=== PATIENT | female | born 1970 | race African-American/Black ===

== ENCOUNTER 2021-07-11 11:55 | Inpatient (IN) | payer OTHER, SELFPAY ==
[2021-07-11] MEDS ORDERED: Ketorolac Tromethamine 30 MG/ML VIAL ONE ×2 (14:03→16:54)
[2021-07-11] MEDS ORDERED: Scopolamine 1.5 mg/72 hour Patch ONE (14:03)
[2021-07-11] MEDS ORDERED: EPINEPHrine 1 MG/ML AMP ONE (16:24)
[2021-07-11] MEDS ORDERED: Bupivacaine PF 0.5% 30 ML VIAL ONE (16:24)
[2021-07-11] MEDS ORDERED: fentaNYL Citrate/PF 100 MCG/2 ML SYRINGE ONE ×2 (16:33→18:06)
[2021-07-11] MEDS ORDERED: SUGAMMADEX SODIUM 200 MG/2 ML VIAL ONE (16:33)
[2021-07-11] MEDS ORDERED: Famotidine/PF 20 mg/2ml Vial ONE (16:33)
[2021-07-11] MEDS ORDERED: cefOXitin 2 GM VIAL ONE (16:45)
[2021-07-11] MEDS ORDERED: Rocuronium Bromide 10 MG/ML (10ML VIAL) ONE (16:54)
[2021-07-11] MEDS ORDERED: Ondansetron PF 4 MG/2 ML Vial ONE (16:54)
[2021-07-11] MEDS ORDERED: Albuterol Sulfate HFA (OR ONLY) ONE (16:54)
[2021-07-11] MEDS ORDERED: Succinylcholine 200 MG/10 ml SYRINGE FS ONE (16:54)
[2021-07-11] MEDS ORDERED: PROPOFOL 200 MG/20 ML VIAL ONE (16:54)
[2021-07-11] MEDS ORDERED: Lidocaine 1% PF 5 ML VIAL ONE (16:54)
[2021-07-11] MEDS ORDERED: Dexamethasone 20 MG/5 ML VIAL ONE (16:54)
[2021-07-11] MEDS ORDERED: Sodium Chloride 0.9% 100 ML ONE (18:37)
[2021-07-11] MEDS ORDERED: HYDROmorphone 2 MG/ML VIAL ONE (19:40)
[2021-07-11 19:45] LABS: Fluid, Cholesterol 86 mg/dL (Not Available)
[2021-07-11] MEDS ORDERED: Naloxone HCl 0.4 mg/ml Vial IV PRN (20:08)
[2021-07-11] MEDS ORDERED: diphenhydrAMINE 50 MG/ML VIAL IM PRN (20:08)
[2021-07-11] MEDS ORDERED: Ondansetron PF 4 MG/2 ML Vial IVP PRN (20:08)
[2021-07-11] MEDS ORDERED: Ketorolac Tromethamine 30 MG/ML VIAL IVP PRN (20:08)
[2021-07-11] MEDS ORDERED: diphenhydrAMINE 25 MG CAP PO PRN (20:08)
[2021-07-11] MEDS ORDERED: diphenhydrAMINE 50 MG/ML VIAL IVP PRN (20:08)
[2021-07-11] MEDS ORDERED: fentaNYL Citrate/PF 2,000 MCG in Sodium Chloride 0.9% 60 ML IV PRN (20:08)
[2021-07-11] MEDS ORDERED: Promethazine HCl 25 MG/ML VIAL IM PRN ×2 (20:08→20:22)
[2021-07-11] MEDS ORDERED: Zolpidem Tartrate 5 MG TAB PO PRN (20:08)
[2021-07-11] MEDS ORDERED: Communication Order-Pharmacy FS SCH (20:15)
[2021-07-11] MEDS ORDERED: Promethazine HCl 25 MG/ML VIAL IVPB PRN (20:22)
[2021-07-11] MEDS ORDERED: Ondansetron HCl/PF 4 MG/2 ML Vial IVP PRN (20:22)
[2021-07-11] MEDS ORDERED: Fentanyl 100 MCG/2 ML VIAL ONE (20:36)
[2021-07-11] MEDS ORDERED: hydrALAZINE 20 MG/ML VIAL SLOW IVP PRN (20:39)
[2021-07-11] MEDS ORDERED: Morphine 2 MG/ML VIAL SLOW IVP PRN (20:39)
[2021-07-11] MEDS ORDERED: Morphine 4 MG/ML VIAL SLOW IVP PRN (20:39)
[2021-07-11 20:51] LABS: Fluid, Triglycerides 1755 mg/dL (Not Available)
[2021-07-11] MEDS: ceFAZolin (BATCH) 2 GM in Premix Bag 1 BAG IVPB SCH (23:14)
[2021-07-11] MEDS: D5 1/2 NS w/20 mEq KCL 1,000 ML IV SCH (23:14)
[2021-07-11] MEDS: Famotidine/PF 20 mg/2ml Vial SLOW IVP SCH (23:38)
[2021-07-11] MEDS: Enoxaparin Sodium 40 MG/0.4 ML SYRINGE SC SCH (23:39)
[2021-07-11 23:43] VITALS: BMI 45.6
[2021-07-12 05:43] LABS: #Lymphocytes 0.8 thou/uL (1.20-3.40); #Monocytes 0.5 thou/uL (0.11-0.59); #Neutrophils 10.1 thou/uL (1.40-6.50); %Basophils 0.1 % (0.0-1.0); %Eosinophils 0.1 % (0.0-10.0); %Monocytes 4.6 % (0.0-10.0); %Neutrophils 88.2 % (42.0-75.0); Hemoglobin 12.1 g/dL (12.0-16.0); Mean Corpuscular HGB CONC 34.2 g/dL (32.0-36.0); Mean Corpuscular Hemoglobin 32.2 pg (27.0-31.0); Mean Corpuscular Volume 94.3 fL (78.0-98.0); Mean Platelet Volume 7.4 fL (7.4-10.4); Platelet Count 260 thou/uL (130-400); RBC Distribution Width 12.1 % (11.5-14.5); Red Blood Cell (RBC) Count 3.75 mill/uL (4.20-5.40); White Blood Cell (WBC) Count 11.4 thou/uL (4.8-10.8)
[2021-07-12] MEDS: ceFAZolin (BATCH) 2 GM in Premix Bag 1 BAG IVPB SCH ×3 (05:44→21:25)
[2021-07-12] MEDS: D5 1/2 NS w/20 mEq KCL 1,000 ML IV SCH ×2 (05:46→08:53)
[2021-07-12 06:04] LABS: ALT (SGPT) 13 U/L (8-55); AST (SGOT) 27 U/L (5-34); Albumin 3.3 g/dL (3.5-5.0); Alkaline Phosphatase 130 U/L (40-110); Anion Gap 11 mmol/L (10-20); BUN (Urea Nitrogen) 7 mg/dL (9.8-20.1); Bilirubin, Total 0.3 mg/dL (0.2-1.2); Calc. Creatinine Clearance 143 mL/min (70-130); Calcium 8.3 mg/dL (7.8-10.44); Carbon Dioxide 25 mmol/L (22-29); Chloride 105 mmol/L (98-107); Globulin 2.4 g/dL (2.4-3.5); Glucose 151 mg/dL (70-105); Potassium 4.1 mmol/L (3.5-5.1); Protein, Total 5.7 g/dL (6.0-8.3); Sodium 137 mmol/L (136-145)
[2021-07-12] MEDS: Famotidine/PF 20 mg/2ml Vial SLOW IVP SCH ×2 (08:50→21:25)
[2021-07-12] MEDS ORDERED: Acetaminophen 500 MG TAB PO PRN (13:38)
[2021-07-12] MEDS ORDERED: D5 1/2 NS w/20 mEq KCL 1,000 ML IV SCH (13:40)
[2021-07-12] MEDS ORDERED: Acetaminophen 500 MG TAB PO SCH (13:45)
[2021-07-12] MEDS: Enoxaparin Sodium 40 MG/0.4 ML SYRINGE SC SCH (21:25)
[2021-07-13] MEDS: ceFAZolin (BATCH) 2 GM in Premix Bag 1 BAG IVPB SCH ×2 (05:43→14:24)
[2021-07-13] MEDS: Famotidine/PF 20 mg/2ml Vial SLOW IVP SCH (08:30)
[2021-07-13] MEDS: HYDROcodone/Acetaminophen 5/325 mg Tablet PO PRN ×2 (08:30→12:38)
[2021-07-13] MEDS ORDERED: Multivit, Therapeutic 1 TAB PO SCH (09:00)
[2021-07-13 15:12] VITALS: BP 139/87; TEMP 97.6
== END 2021-07-13 15:36 | disposition home or self-care (01) | DRG 330 ==
LOC: SDC 11:55 → SJJU 20:39
PROVIDERS: ADMIT Specialist; ATTEND Specialist
PROC: 0DS84ZZ Reposition Small Intestine, Percutaneous Endoscopic Approach (ICD-10-PCS; principal; 2021-07-11)
PROC: 0DJ00ZZ Inspection of Upper Intestinal Tract, Open Approach (ICD-10-PCS; 2021-07-11)
DX: K56.2 Volvulus (principal); Z20.822 Contact with and (suspected) exposure to COVID-19; Z68.42 Body mass index [BMI] 45.0-49.9, adult; Q43.8 Other specified congenital malformations of intestine; R18.8 Other ascites; K44.9 Diaphragmatic hernia without obstruction or gangrene; I89.8 Other specified noninfective disorders of lymphatic vessels and lymph nodes; E66.01 Morbid (severe) obesity due to excess calories; I10 Essential (primary) hypertension; Z53.31 Laparoscopic surgical procedure converted to open procedure; Z98.890 Other specified postprocedural states; Z90.49 Acquired absence of other specified parts of digestive tract; Z98.84 Bariatric surgery status; Z88.1 Allergy status to other antibiotic agents; Z88.8 Allergy status to other drugs, medicaments and biological substances
CPT/HCPCS: 36415; 80053; 82465; 84478; 85025; 87070; 87205; C1776; J0171; J0690; J0694; J1100; J1170; J1650; J1885; J2405; J2704; J3010; J3411; J3480; J3490; S0020; S0028